=== PATIENT | female | born 1995 | race Caucasian/White ===

== ENCOUNTER 2023-08-05 11:01 | Emergency (ER) | payer MEDICAID ==
[~2023-08-05] VITALS: Ht 162.6 cm; Wt 54.0 kg
[2023-08-05 11:04] VITALS: BP 118/57; PULSE 92; RESP 20; TEMP 98.5; O2SAT 98
[2023-08-05] MEDS ORDERED: OFLO5DRO4 LEFT EAR (11:27)
== END 2023-08-05 14:10 | disposition home or self-care (01) ==
LOC: ER 11:01
DX: H60.92 Unspecified otitis externa, left ear (principal)
CPT/HCPCS: 99283